=== PATIENT | male | born 1985 | race Caucasian/White ===

== ENCOUNTER 2021-12-04 18:52 | Emergency (ER) | payer OTHER, SELFPAY ==
[2021-12-04 18:58] VITALS: BP 122/77; PULSE 83; RESP 16; TEMP 37; O2SAT 98
--- NOTE | 2021-12-04 19:04 | ED.SKABFB ---
HPI - Skin/Abscess/Foreign Bdy General Chief complaint: Skin/Abscess/Foreign Body Stated complaint: Bee Sting Time Seen by Provider: 12/04/21 19:00 Source: patient and RN notes reviewed History of Present Illness HPI narrative: Patient is a 36-year-old male who presents the urgent care with complaints of swelling to the right ankle/foot due to a wasp sting. Patient states that happened yesterday and he just now took Benadryl this evening. Denies of any fevers. Denies of any shortness of breath or difficulty swallowing/breathing. No other acute complaints. No acute distress noted. Patient aware of the plan of care. Some parts of this dictation were generated by voice recognition software and may contain typographical and/or grammatical inaccuracies. Related Data Allergies Allergy/AdvReac Type Severity Reaction Status Date / Time No Known Allergies Allergy Unverified 12/04/21 19:11 Review of Systems Review of Systems: CONSTITUTIONAL: Denies fever, chills, or sweats. EYES: Denies visual changes, redness, or discharge. ENT: Denies rhinorrhea, congestion, sore throat, or otalgia. CARDIOVASCULAR: Denies chest pain, palpitations, or edema. RESPIRATORY: Denies cough or dyspnea. GASTROINTESTINAL: Denies abdominal pain, nausea, vomiting, or diarrhea. GENITOURINARY: Denies dysuria or hematuria. SKIN: Reports of blasting to the right foot/ankle MUSCULOSKELETAL: Denies back pain, joint pain, or myalgia. NEUROLOGIC: Denies headache, numbness, or weakness. All other systems reviewed are negative, except as documented in HPI. PMFSH Comments At the time of my signature, I reviewed and agree with the nursing past medical, surgical, social, and family history. There is no relevant family history pertinent to the patient complaint. Exam Narrative: GENERAL: This is a well-nourished, well-developed patient, in no apparent distress. HEAD: normocephalic, atraumatic. EYES: PERRL. Sclera clear/white. Vision is grossly intact. EARS: External ears normal NOSE: External nose normal with no obvious nasal discharge, nares without redness, no rhinorrhea. THROAT: Mucous membranes moist, posterior pharynx clear. NECK: Neck supple, non-tender without lymphadenopathy SKIN: warm, intact with no suspicious lesions or rash, good texture and turgor. NEURO: awake, alert, and oriented to person, place and time. There were no obvious focal neurologic abnormalities. EXTREMITIES: 1+ pitting edema to the right lower extremity/right lateral malleolus and dorsal foot without signs or symptoms of cellulitis. Positive strong right pedal pulse with capillary refill less than 2 seconds Course Course Level of Care: Express Care Visit Vital Signs Vital signs: Vital Signs Temperature 98.6 F 12/04/21 18:58 Pulse Rate 83 12/04/21 18:58 Respiratory Rate 16 12/04/21 18:58 Blood Pressure 122/77 12/04/21 18:58 Pulse Oximetry 98 12/04/21 18:58 Oxygen Delivery Room Air 12/04/21 18:58 Temperature 98.6 F 12/04/21 18:58 Pulse Rate 83 12/04/21 18:58 Respiratory Rate 16 12/04/21 18:58 Blood Pressure 122/77 12/04/21 18:58 Pulse Oximetry 98 12/04/21 18:58 Oxygen Delivery Room Air 12/04/21 18:58 Reviewed MDM - Skin/Abscess/Foreign Bdy MDM Narrative Medical decision making narrative: Advised patient to start the steroid tomorrow to avoid keeping him up this evening. Use Benadryl in the evenings or every 4-6 hours throughout the day. May take a daily antihistamine such as Claritin or Zyrtec in the morning. Be sure to eat and drink with the medications. If you develop any increase in swelling associated with fever?go to the emergency room. Reaction is typical for a localized reaction and swelling will take time to subside. Advised the patient to try to stay off his feet for the next 24 to 48 hours until swelling has improved. Keep the foot elevated with the use of ice. Follow-up with your PCP within 2 to 5 days or for worsening symptoms
== END 2021-12-04 19:20 | disposition home or self-care (01) ==
PROVIDERS: Emergency Provider Nurse Practitioner Family; PCP Family Medicine
DX: T63.461A Toxic effect of venom of wasps, accidental (unintentional), initial encounter (principal)
CPT/HCPCS: 99203; G0463